=== PATIENT | male | born 1970 | race Caucasian/White ===

== ENCOUNTER 2016-04-07 10:23 | Emergency (ER) | payer SELFPAY ==
[~2016-04-07] VITALS: Ht 175.3 cm; Wt 100.0 kg
[~2016-04-07 10:23] MED LIST: BACT800T5 PO; CEPH-460 PO; PRED10PA2 PO
[2016-04-07 11:48] VITALS: BP 134/92; PULSE 98; RESP 12; TEMP 98.4; O2SAT 99
--- NOTE | 2016-04-07 15:03 | PD ---
HPI Chief Complaint: Skin Problem Time Seen by Provider: 11:40 Travel History International Travel<30 days: No Contact w/Intl Traveler<30days: No Traveled to known affect area: No History of Present Illness HPI 45-year-old male with history of psoriasis presents to the emergency room for evaluation of psoriatic exacerbation. Patient states his exacerbation began about 2 weeks ago after spending too much time in the sun. He went to the outpatient clinic and was prescribed Keflex and prednisone. States he has been taking them appropriately without significant relief in symptoms. He followed up in the emergency room shortly after that appointment and Bactrim was added to his medication regimen. He has also been taking the Bactrim. States his rash just seems to be worsening. It started off on his bilateral upper shoulders and chest and has now spread to the rest of his body. He is most concerned about the area to his bilateral medial thighs. Patient denies fever, chills, nausea, vomiting. He reports extreme 10/10 pain worse with range of motion or movement. He has not been taking anything for pain. States he has not been able follow up with a lead technician because he does not have insurance. History Social History Alcohol Use: Yes (DAILY PER PT) Tobacco Use: No Allergies-Medications (Allergen,Severity, Reaction): Coded Allergies: No Known Allergies (Verified , 04/07/16) Reported Meds & Prescriptions Reported Meds & Active Scripts Active Bactrim DS (Sulfamethoxazole-Trimethoprim) 800-160 Mg Tab 2 Tab PO BID 10 Days Reported Prednisone (48) 10 mg tab Dose Pack (Prednisone) 10 Mg Dspk 10 Mg PO DIRECTED Keflex (Cephalexin) 500 Mg Cap 500 Mg PO Q12H Review of Systems Except as stated in HPI: all other systems reviewed are Neg Data Data Last Documented VS Vital Signs Date Time Temp Pulse Resp B/P Pulse Ox O2 Delivery O2 Flow Rate FiO2 04/07/16 11:48 98.4 98 12 134/92 99 Room Air MDM Medical Screen Exam Complete: Yes Emergency Medical Condition: No Differential Diagnosis Psoriasis vulgaris Narrative Course 45-year-old male presents to the emergency room for evaluation of psoriasis flare. This is the second time he has been seen in the emergency room in the past week for this condition. Patient is concerned about the extent of his condition and reports severe pain. He is requesting admission however there is no indication for admission. He was told to take [id number] ibuprofen and Tylenol for pain and follow-up with the lead technician. There are no urgent or emergent medical conditions at this time. A medical screening exam was performed: At the time of evaluation the presenting medical condition was determined not to be of an emergent nature. The patient was given the option of receiving additional care, but declined. Patient was given options for additional community resources from which to obtain care. The Patient Has Been advised to seek medical attention for their presenting complaint. The patient has been advised to return to the ER at any time if an emergent condition develops. Primary Impression: Encounter for medical screening examination Disposition: 01 DISCHARGE HOME Condition: Stable Verna Hartmann Apr 07, 2016 15:03
== END 2016-04-07 12:09 | disposition left against medical advice (07) ==
LOC: NEPB 10:23
DX: R21 Rash and other nonspecific skin eruption (principal); L40.9 Psoriasis, unspecified
CPT/HCPCS: 99281